=== PATIENT | female | born 1995 | race African-American/Black ===

== ENCOUNTER 2018-05-24 21:47 | Emergency (ER) | payer OTHER ==
[~2018-05-24] VITALS: Ht 157.5 cm; Wt 55.8 kg
[2018-05-24 22:28] VITALS: BP 105/73
--- NOTE | 2018-05-24 22:28 | NUR ---
ED Nurse Note: Pt BIBA in ED from home, c/o right arm injuried and pain 7/10 due to cauted in stamped today. Pt is A/O X4. VSS , waitng for orders.
[2018-05-24] MEDS ORDERED: HYDROcodone/Acetamin 5/325 tab ORAL ONE (22:30)
[2018-05-24] MEDS ORDERED: Tetanus/Diptheria/Pertussis Vaccine 0.5ml Syr IM ONE (22:30)
[2018-05-24] MEDS ORDERED: Bacitracin Oint UD TOPIC ONE (23:00)
[2018-05-24] MEDS ORDERED: IBUPROFEN600 MG ORAL (23:07)
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
[2018-05-24 23:11] VITALS: BP 104/72
--- NOTE | 2018-05-24 23:11 | NUR ---
ER DISCHARGE NOTE: Patient is cleared to be discharged per Dr. Gonzalez. Dressing applied. Pt is A/O x4 on room air with stable vital signs.Pt was given D/C and prescription instructions, Pt was able to verbalize understanding, pt ID band removed. pt is able to ambulate with steady gait and took all belongings.
--- NOTE | 2018-05-24 23:37 | NUR ---
ED Nurse Note: Pain meds given, Tetanus given as ordered.
--- NOTE | 2018-05-25 10:53 | Diagnostic Imaging Report ---
Indication: Trauma, pain, status post fall Technique: 3 views of the right knee Comparison: None Findings: 6 mm diameter dense opacity projects in the superficial soft tissues superolateral to the upper pole of the patella. No evidence of fracture or bony disruption. No suprapatellar effusion. The joint spaces are preserved Impression: 6 mm opacity in the superficial soft tissues. Per ER physician reported in the electronic medical records, this represents an old calcification rather than an acute foreign body No acute bony trauma
--- NOTE | 2018-05-25 10:54 | Diagnostic Imaging Report ---
Clinical Indication:Reason For Exam: TRAUMA Technique: 3 views of the hand Comparison: None Findings: No acute fractures. No dislocations. Joint spaces are preserved. No radiopaque foreign body Impression: Negative
== END 2018-05-24 23:11 | disposition home or self-care (01) ==
LOC: EDBD 21:47 → EMR 22:40
DX: S61.411A Laceration without foreign body of right hand, initial encounter (principal); S80.01XA Contusion of right knee, initial encounter; Z23 Encounter for immunization; W19.XXXA Unspecified fall, initial encounter; Y92.9 Unspecified place or not applicable
CPT/HCPCS: 90471; 90715; 99283